=== PATIENT | female | born 1945 | race Caucasian/White ===

== ENCOUNTER 2016-10-29 22:47 | Emergency (ER) | payer MEDICARE, BC ==
[~2016-10-29 22:47] MED LIST: COMPAZINE25 MG/SUPP PR; NO HOME MEDS; NORCO 5/325 TAB1 TAB PO; PERCOCET 5/3251 TAB PO; ZOFRAN ODT4 MG/UDTAB PO
[2016-10-29] MEDS ORDERED: ASPIRIN EC81 MG PO (22:52)
[2016-10-29] MEDS ORDERED: LIPITOR40 M1 PO (22:52)
[2016-10-29] MEDS ORDERED: PRINIVIL10 M1 PO (22:53)
[2016-10-29] MEDS ORDERED: NITROGLYCERIN0.4 M2 SL (22:53)
[2016-10-29] MEDS ORDERED: BRILINTA90 M1 PO (22:53)
[2016-10-29] MEDS ORDERED: TOPROL XL25 M1 PO (22:53)
[2016-10-29 23:20] LABS: BASO % 0.1 % (0-2); EOS % 0.1 % (0-7); HCT-HEMATOCRIT 46.4 % (34.0-49.0); IMMATURE GRANULOCYTES ABSOLUTE 0.09 tho/cmm (0-0.03); IMMATURE GRANULOCYTES PERCENT 0.5 % (0-0.3); LYMPH % 33.6 % (20-45); LYMPH ABSOLUTE COUNT 6.3 tho/cmm (0.8-4.5); MCH (MEAN CORPUSCULAR HGB) 31.8 pg (28.0-32.0); MCHC MEAN CORPUSCULAR HGB CONC 34.5 % (32.0-36.0); MCV (MEAN CELL VOLUME) 92.2 fl (82.0-96.0); MEAN PLATELET VOLUME 9.6 cmc (9.4-12.4); MONO % 2.7 % (0-12); MONOCYTE ABSOLUTE COUNT 0.5 tho/cmm (0.0-1.2); NEUTROPHIL ABSOLUTE COUNT 11.8 tho/cmm (1.6-8.0); NEUTROPHIL-AUTOMATED 11.8 tho/cmm (1.6-8.0); PLATELET COUNT 261 tho/cmm (150-450); RED BLOOD COUNT 5.03 mil/cmm (4.00-5.20); WHITE BLOOD COUNT 18.7 tho/cmm (4.0-10.0)
[2016-10-29 23:35] LABS: ALBUMIN 4.1 g/dl (3.5-5.0); ALKALINE PHOSPHATASE 157 U/L (33-138); ALT/SGPT 31 U/L (12-78); ANION GAP 14 mmol/L (0-20); AST/SGOT 28 U/L (10-40); BILIRUBIN,TOTAL 0.8 mg/dl (0-1.5); BLOOD UREA NITROGEN 14 mg/dl (6-24); CALCIUM 9.1 mg/dl (8.5-10.5); CARBON DIOXIDE-VENOUS 21 mmol/L (22-32); CHLORIDE 108 mmol/l (96-110); CREATININE 0.85 mg/dl (0.50-1.10); GLUCOSE 149 mg/dL (70-110); LIPASE 173 U/L (73-393); SODIUM 139 mmol/L (135-145); eGFR VALUE FOR BLACK 79 mL/Min
[2016-10-29 23:36] LABS: POTASSIUM 3.7 mmol/L (3.7-5.1)
[2016-10-30 01:11] LABS: URINE BILIRUBIN NEGATIVE (NEG); URINE BLOOD MODERATE (NEG); URINE GLUCOSE (UA) NEGATIVE (NEG); URINE KETONE MODERATE (NEG); URINE LEUKOCYTE ESTERASE POSITIVE (NEG); URINE NITRITE NEGATIVE (NEG); URINE PROTEIN NEGATIVE (NEG)
[2016-10-30 01:13] LABS: URINE APPEARANCE HAZY; URINE COLOR YELLOW
[2016-10-30] MEDS ORDERED: LOPERAMIDE2 M2 PO (01:27)
[2016-10-30] MEDS ORDERED: ZOFRAN ODT4 MG PO (01:27)
[2016-10-30 01:28] LABS: URINE BACTERIA 1+
== END 2016-10-30 01:32 ==
LOC: EDMED 22:47
PROVIDERS: Emergency Medicine
DX: K52.9 Noninfective gastroenteritis and colitis, unspecified (principal); I25.10 Atherosclerotic heart disease of native coronary artery without angina pectoris; I10 Essential (primary) hypertension; Z87.442 Personal history of urinary calculi; Z95.5 Presence of coronary angioplasty implant and graft; Z79.82 Long term (current) use of aspirin; Z79.899 Other long term (current) drug therapy; F17.210 Nicotine dependence, cigarettes, uncomplicated
CPT/HCPCS: J2405; J7030; Q9967